=== PATIENT | male | born 1960 | race Caucasian/White ===

== ENCOUNTER → 2023-10-26 08:45 | Outpatient (CLI) | payer OTHER, SELFPAY ==
[2023-10-26 09:35] LABS: Add Manual Diff / Slide Review NO; Basophils Absolute Auto 100 /uL (0-100); Basophils Percent Auto 0.9 % (0-2); Eosinophils Absolute Auto 500 /uL (0-450); Eosinophils Percent Auto 7.7 % (2-4); Hematocrit 42.9 % (41-53); Hemoglobin 14.4 g/dL (13.5-17.5); Lymphocytes Absolute Auto 2200 /uL (1100-4500); Lymphocytes Percent Auto 34.7 % (25-40); Mean Corpuscular HGB Conc 33.7 % (30-36); Mean Corpuscular Hemoglobin 29.7 PG (26-34); Mean Corpuscular Volume 88.2 fL (80-100); Monocytes Absolute Auto 500 /uL (0-900); Monocytes Percent Auto 7.9 % (3-14); Neutrophils Absolute Auto 3100 /uL (1500-7000); Neutrophils Percent Auto 48.8 % (50-75); Platelet Count 240 X10^3/uL (150-400); Red Blood Cell Count 4.86 X10^6/uL (4.5-5.9); Red Cell Distribution Width 13.4 % (11.6-14.8); White Blood Cell Count 6.4 X10^3/uL (4.5-11.0)
[2023-10-26 09:56] LABS: Alanine Aminotransferase 23 IU/L (<50); Albumin Globulin Ratio 1.4 (1.0-2.8); Alkaline Phosphatase 77 U/L (38-126); Aspartate Aminotransferase 30 IU/L (17-59); BUN Creatinine Ratio 21.1 (6-22); Bilirubin Total 0.6 mg/dL (0.2-1.3); Blood Urea Nitrogen 19 mg/dL (9-20); Calcium 9.5 mg/dL (8.4-10.2); Carbon Dioxide 28 mmol/L (22-32); Chloride 106 mmol/L (98-107); Cholesterol 165 mg/dL (140-199); Estimated Glomerular Filt Rate > 60 mL/min (>60); Globulin 2.8 g/dL (1.7-4.1); Glucose 111 mg/dL (80-110); HDL Cholesterol 60 mg/dL (40-60); HEMOLYSIS < 15 (0-50); LDL Cholesterol Calculated 96 mg/dL (<100); Potassium 4.6 mmol/L (3.4-5.1); Sodium 138 mmol/L (137-145); Total Protein 6.8 g/dL (6.3-8.2); Triglycerides 47 mg/dL (35-150)
[2023-10-26 10:24] LABS: Prostate Specific Antigen 2.73 ng/mL (0.10-4.00)
== END ==
PROVIDERS: Family Provider Family Medicine; PCP Family Medicine; Referring Provider Family Medicine; Visit Provider Family Medicine
DX: Z00.00 Encounter for general adult medical examination without abnormal findings (principal); N40.0 Benign prostatic hyperplasia without lower urinary tract symptoms; Z86.018 Personal history of other benign neoplasm
CPT/HCPCS: 36415; 80053; 80061; 84153; 85025

== ENCOUNTER 2024-06-16 07:41 | Day surgery (SDC) | payer OTHER, SELFPAY ==
[2024-06-16 08:10] VITALS: BP 123/84; PULSE 63; RESP 16; TEMP 36.6; O2SAT 99
--- NOTE | 2024-06-16 08:34 | PM.HP.1 ---
History of Present Illness History of Present Illness Date Patient Seen: 06/16/24 Time Patient Seen: 08:34 Chief complaint: Screening Colonoscopy Narrative: 63-year-old male here for screening colonoscopy. Last colonoscopy 12 years ago. No family history of colon cancer. No abdominal concerns today. [facility] Medical History Family history of prostate cancer BPH (benign prostatic hyperplasia) History of dysplastic nevus Well adult exam Social History Smoking Status: Never smoker alcohol intake: current Meds Home Medications and Allergies Home Medications Medication Instructions Recorded Confirmed Type tamsulosin 0.4 mg capsule 0.4 mg PO BEDTIME #90 caps 10/24/23 06/16/24 Rx peg 3350-electrolytes 236 240 ml PO Q10M #4,000 mL 05/08/24 Rx gram-22.74 gram-6.74 gram-5.86 gram solution (Golytely) Allergies Allergy/AdvReac Type Severity Reaction Status Date / Time bertin Allergy Unknown Verified 06/16/24 08:03 Exam Vital Signs (past 8 hours): - 06/16/24 08:10 Temperature 97.8 F Pulse Rate 63 Respiratory Rate 16 Blood Pressure 123/84 Pulse Oximetry 99 Oxygen Delivery Method Room Air Oxygen Delivery Method Room Air Narrative Exam Narrative: General adult man alert oriented no acute distress Chest nonlabored respiration Extremities warm well perfused Assessment & Plan Assessment & Plan narrative: The patient requires colorectal screening and colonoscopy is recommended. Technical details were discussed. Risks, benefits, alternatives explained. Risks including but not limited to myocardial infarction, aspiration, bleeding, pain, missed lesion, incomplete examination, need for further radiographic studies, intestinal injury, and need for major abdominal surgery were discussed. All questions were answered to their satisfaction, and they are in agreement with this plan. Time-Based Coding :: [TOTAL MINUTES] spent with patient and on the chart (including review of chart, obtaining history, exam, reviewing outside data, placing orders, documenting exam and treatment plan, and counseling patient) on [DATE].
[2024-06-16 09:06] VITALS: BP 116/82; PULSE 86; RESP 20; TEMP 36.3; O2SAT 96
[2024-06-16 09:11] VITALS: BP 114/88; PULSE 82; RESP 16; O2SAT 95
--- NOTE | 2024-06-16 09:11 | P.OP.COLON_ITS ---
Operative Date/Time/Diagnoses Date of procedure: 06/16/24 Time of procedure: 09:11 Pre-op diagnosis: Colorectal screening Procedure & Clinicians Study performed: Colonoscopy Same procedure as scheduled: Yes Indications: Screening Surgeon: Mohamud Fraga Procedure Notes Procedure in detail: The history and physical was performed/updated and the patient is ASA class is 2. The procedure was discussed in detail with the patient. Potential risks complications including infection, bleeding, missed diagnosis, perforation, need for surgery, and were explained. Their questions were answered and informed consent was obtained. Patient was brought to the procedure room and placed standard monitoring equipment. The patient's vital signs were monitored continuously throughout the entire procedure. Prior to starting time-out was performed. The patient was pl aced in the left lateral recumbent position. Procedural sedation was administered by anesthesia. Examination began with a thorough inspection of the perianal area there was no evidence of fissures, fistulae, external hemorrhoids or cutaneous malignancy. The colonoscopy scope was then placed into the anal canal and was advanced to the cecum, which was identified by the ileocecal valve, the appendiceal orifice and the confluence of the taenia. The scope was then slowly withdrawn examining colon thoroughly in all directions, irrigating it of any residual stool. The scope was retroflexed within the rectum The patient tolerated the procedure well. They will be discharged once criteria are met. The prep was of good/excellent quality. The withdrawl time was 7 minutes. FINDINGS * Mild diverticulosis of distal colon * No polyps or masses Findings: divertiulosis Specimen(s): none sent Post-procedure Recommendations: Colonoscopy in 10 years and High fiber diet Disposition: same day surgery
[2024-06-16 09:16] VITALS: BP 115/88; PULSE 74; RESP 13; O2SAT 98
[2024-06-16 09:21] VITALS: BP 120/81; PULSE 66; RESP 13; TEMP 36.7; O2SAT 99
== END 2024-06-16 09:35 | disposition home or self-care (01) ==
PROVIDERS: Family Provider Family Medicine; PCP Family Medicine; Referring Provider Surgery; Visit Provider Surgery
PROC: 0DJD8ZZ Inspection of Lower Intestinal Tract, Via Natural or Artificial Opening Endoscopic (ICD-10-PCS; CPT 45378; principal; 2024-06-16 08:45)
DX: Z12.11 Encounter for screening for malignant neoplasm of colon (principal); K57.30 Diverticulosis of large intestine without perforation or abscess without bleeding
CPT/HCPCS: 45378; J2704

== ENCOUNTER 2025-06-09 11:27 | Day surgery (SDC) | payer OTHER, SELFPAY ==
[2025-05-28 14:58] VITALS: BMI 20.9
[2025-06-09] VITALS (9 sets, daily range): BP systolic 131–149; BP diastolic 77–90; PULSE 62–86; RESP 12–25; TEMP 36.3–36.7; O2SAT 98–99
[2025-06-09] MEDS: LACTATED RINGERS 1,000 ML 42 ML IV (12:23)
[2025-06-09] MEDS: ACETAMINOPHEN IV 1,000 MG/100 ML VIAL 400 MG IV (12:24)
--- NOTE | 2025-06-09 13:35 | PM.PREOP ---
Pre-operative Note COVID-19 COVID-19 status: Not tested Interval Note History & Physical reviewed/Exam performed by Physician: Yes Changes to H&P: No ASA Class (for procedural sedation): II
--- NOTE | 2025-06-09 14:24 | SUR.OPER ---
Supine on pink padded OR bed, head on pillow,upper torso secured with purple strap, arms padded and tucked at sides, IV sites padded, legs uncrossed, safety belt at thigh, tape over blanket over lower legs .
--- NOTE | 2025-06-09 16:06 | P.OP_ITS ---
Operative Date/Time/Diagnoses Date of procedure: 06/09/25 Time of procedure: 16:06 Pre-op diagnosis: Left inguinal hernia Post-op diagnosis: same Procedure & Clinicians Procedure: Robotic left inguinal hernia repair with mesh Same procedure(s) as scheduled: Yes Surgeon: Saravanan Pop Assisted?: No Anesthesia Type: General Operative Notes Findings: Large indirect left inguinal hernia, no right inguinal hernia Applied: none Estimated Blood Loss (mL): 9 Procedure in detail: The patient was given preoperative antibiotics. The patient was brought to the operating room, placed on the table in the supine position with the arms tucked and general anesthesia was induced. The abdomen was prepped and draped in the usual fashion. A time-out was performed. A 1 cm transverse incision was created superior to the umbilicus and dissection was carried down to the fascia. The fascia was grasped with a Asmita clamp to elevate the abdominal wall. The fascia was scored transversely with cautery. A Peon clamp was used to kemp the peritoneum. The 12 mm robotic port was placed and the abdomen was insufflated to 15 mmHg. The camera was inserted, there was no evidence of any injury from the entry. There was a rather large indirect left inguinal hernia. 8 mm ports were placed under direct vision in the mid left and mid right abdomen. The patient was positioned in Trendelenburg. The robot was docked. We created left peritoneal flap. The peritoneum was dissected off the left cord structures and the William's ligament was exposed. An extra-large left Bard mesh was brought in and placed over the defect with the medial edge overlapping the pubic symphysis. We then closed the peritoneal flap with a running 3-0 barbed suture. There were a few defects in the peritoneal sac that were closed with interrupted 3-0 Vicryl. We took one last look around the abdomen and saw no other abnormalities. The suture was removed and accounted for. The robot was undocked. The 8 mm ports were removed under direct vision. The abdomen was desufflated. The 12 mm port was removed. Additional local was injected into the fascia and the fascial incision was closed with 2 interrupted 0 Vicryl sutures. The skin incisions were closed with 4 Monocryl, Steri-Strips and Band- Aids. Farooq ESPINAL provided assistance with exposure, retraction and closure of incisions. Complications: none Post-operative Condition: stable Disposition: PACU
[2025-06-09] MEDS: ONDANSETRON 4 MG/2 ML INJ IV (16:23)
[2025-06-09] MEDS: hydrOXYzine 50 MG/ML INJ 25 MG IM (17:19)
--- NOTE | 2025-06-09 17:19 | SUR.PHASEI ---
1700 - pt continues to experience nausea - spoke with Gabrielle Reed CRNA - Hydroxyzine 25mg ordered and administered
== END 2025-06-09 18:11 | disposition home or self-care (01) ==
PROVIDERS: Family Provider Family Medicine; PCP Family Medicine; Referring Provider Family Medicine; Visit Provider Surgery
PROC: 0YQ64ZZ Repair Left Inguinal Region, Percutaneous Endoscopic Approach (ICD-10-PCS; CPT 49650; principal; 2025-06-09 12:45)
DX: K40.90 Unilateral inguinal hernia, without obstruction or gangrene, not specified as recurrent (principal)
CPT/HCPCS: 49650; S2900; C1781; J0131; J0689; J1100; J2405; J2704; J3010; J3410; J3490; J7120